=== PATIENT | female | born 1970 | race African-American/Black ===

== ENCOUNTER 2018-02-17 12:10 | Inpatient (IN) | payer MEDICAID, OTHER ==
[~2018-02-17] VITALS: Ht 154.9 cm; Wt 57.4 kg
[2018-02-17 13:47] LABS: Basophils # (auto) 0.1 uL; Basophils % (auto) 1.3 % (0.0-2.0); Eosinophils # (auto) 0 uL; Eosinophils % (auto) 0.5 % (0.0-7.0); Hematocrit 42.4 % (36.0-46.0); Hemoglobin 14.9 g/dL (12.2-16.2); Mean Corpuscular Hemoglobin 32.2 pg (28.0-32.0); Mean Corpuscular Volume 91.9 fL (80.0-100.0); Monocytes # (auto) 0.3 uL; Monocytes % (auto) 4.6 % (0.0-12.0); Neutrophils # (auto) 3.1 uL; Neutrophils % (auto) 56.6 % (37.0-80.0); Nucleated Red Blood Cells % 0.2 %; Platelet Count (auto) 429 10^3/uL (140-450); Red Blood Cells 4.61 10^6/uL (4.0-5.20); Red Cell Distribution Width 15.2 % (11.8-14.3); White Blood Cell 5.4 10^3/uL (4.4-10.8)
[2018-02-17 14:14] LABS: Alanine Aminotransferase 346 U/L (13-56); Albumin 3.2 g/dL (3.4-5.0); Alkaline Phosphatase 1451 U/L (45-117); Anion Gap 9 (5-15); Aspartate Aminotransferase 240 U/L (15-37); Bilirubin, Total 11.1 mg/dL (0.2-1.0); Blood Urea Nitrogen 12 mg/dL (7-18); Calcium 9.3 mg/dL (8.5-10.1); Carbon Dioxide 27 mmol/L (21-32); Chloride 102 mmol/L (98-107); GFR African American 76 mL/min; GFR Non-African American 63 mL/min; Glucose 95 mg/dL (74-106); Potassium 3.8 mmol/L (3.5-5.1); Sodium 138 mmol/L (136-145); Total Protein 8.5 g/dL (6.4-8.2)
[2018-02-17 16:56] LABS: Magnesium 2.4 mg/dL (1.6-2.6)
[2018-02-17 17:02] LABS: Partial Thromboplastin Time 28.6 sec (23.78-33.04); Prothrombin Time 10.7 sec (9.27-12.13)
[2018-02-17 17:40] LABS: Urine Bacteria NONE SEEN /hpf (None Seen); Urine Blood Negative /uL (Negative); Urine Mucus FEW (None Seen); Urine Specific Gravity 1.034 (1.001-1.035); Urine WBC 77 /hpf (0 - 5)
[2018-02-17 17:53] LABS: Amphetamine Screen, Urine NEGATIVE (NEGATIVE); Barbiturate Scree,Urine NEGATIVE (NEGATIVE); Benzodiazephine Screen, Urine NEGATIVE (NEGATIVE); Cannabinoid Screen, Urine POSITIVE (NEGATIVE); Cocaine Screen, Urine POSITIVE (NEGATIVE); Opiate Scree,Urine NEGATIVE (NEGATIVE); Phencyclidine Screen, Urine NEGATIVE (NEGATIVE)
[2018-02-17] MEDS ORDERED: cloNIDine HCL 0.1 MG TAB PO ONE (18:30)
[2018-02-17] MEDS ORDERED: cefTRIAXone 1GM/10ml IVPUSH 10 ML IV ONE (19:30)
[2018-02-17] MEDS: SODIUM CHLORIDE 0.9% 1,000 ML IV SCH (23:00)
[2018-02-17] MEDS: cloNIDine HCL 0.1 MG TAB PO PRN (23:35)
[2018-02-18] VITALS (8 sets, daily range): BP systolic 134–188; BP diastolic 77–105
[2018-02-18 05:51] LABS: Basophils # (auto) 0.1 uL; Basophils % (auto) 1.6 % (0.0-2.0); Eosinophils # (auto) 0.1 uL; Eosinophils % (auto) 1.7 % (0.0-7.0); Hematocrit 38.3 % (36.0-46.0); Hemoglobin 13.5 g/dL (12.2-16.2); Lymphocytes % (auto) 41.1 % (10.0-50.0); Mean Corpuscular Hemoglobin 32.7 pg (28.0-32.0); Mean Corpuscular Hgb Conc. 35.3 g/dL (32.0-36.0); Mean Corpuscular Volume 92.5 fL (80.0-100.0); Monocytes # (auto) 0.2 uL; Monocytes % (auto) 3.3 % (0.0-12.0); Neutrophils # (auto) 2.6 uL; Neutrophils % (auto) 52.3 % (37.0-80.0); Nucleated Red Blood Cells % 0.1 %; Platelet Count (auto) 379 10^3/uL (140-450); Red Blood Cells 4.14 10^6/uL (4.0-5.20); Red Cell Distribution Width 15.4 % (11.8-14.3)
[2018-02-18 06:13] LABS: Albumin 2.6 g/dL (3.4-5.0); Potassium 3.3 mmol/L (3.5-5.1)
[2018-02-18 06:15] LABS: BUN/Creatinine Ratio 13.6
[2018-02-18 06:27] LABS: Bilirubin, Total 9.1 mg/dL (0.2-1.0); Total Protein 6.9 g/dL (6.4-8.2)
[2018-02-18] MEDS: cefTRIAXone 1GM/10ml IVPUSH 10 ML IV SCH (10:17)
[2018-02-18] MEDS: PANTOPRAZOLE 40 MG/10 ML VIAL IV SCH (10:17)
[2018-02-18] MEDS: SODIUM CHLORIDE 0.9% 1,000 ML IV SCH ×2 (10:18→14:52)
[2018-02-18 11:31] LABS: Hepatitis A Ab IgM Negative; Hepatitis B Core IgM Negative; Hepatitis B Surface Antigen Negative (Negative)
[2018-02-18 11:32] LABS: Hepatitis C Antibody Negative (Negative)
[2018-02-18] MEDS ORDERED: LORazepam 2MG/ML-1ML VIAL IV ONE (13:00)
[2018-02-18] MEDS ORDERED: POTASSIUM CHL 20 Meq TABLET PO ONE (14:30)
[2018-02-18] MEDS ORDERED: amLODIPine BESYLATE 5 MG TAB PO ONE (14:45)
[2018-02-18] MEDS: TEMAZEPAM 15 MG CAP PO PRN (21:23)
[2018-02-18] MEDS: HYDROcodone-ACET 5/325MG TAB PO PRN (21:23)
[2018-02-19 04:42] VITALS: BP 185/94
[2018-02-19 06:36] LABS: Potassium 3.8 mmol/L (3.5-5.1)
[2018-02-19 06:41] LABS: Albumin 2.6 g/dL (3.4-5.0); BUN/Creatinine Ratio 10.8; Calcium 8.8 mg/dL (8.5-10.1)
[2018-02-19] MEDS: SODIUM CHLORIDE 0.9% 1,000 ML IV SCH ×2 (06:54→20:19)
[2018-02-19 06:57] LABS: Bilirubin, Total 10.2 mg/dL (0.2-1.0)
[2018-02-19] MEDS: cefTRIAXone 1GM/10ml IVPUSH 10 ML IV SCH (09:13)
[2018-02-19] MEDS: POTASSIUM CHL 20 Meq TABLET PO SCH (09:18)
[2018-02-19] MEDS: PANTOPRAZOLE 40 MG/10 ML VIAL IV SCH ×2 (09:18→22:13)
[2018-02-19] MEDS ORDERED: amLODIPine BESYLATE 5 MG TAB PO SCH (10:00)
[2018-02-19] MEDS ORDERED: amLODIPine BESYLATE 5 MG TAB PO ONE (10:45)
[2018-02-19 11:09] VITALS: BP 156/101
[2018-02-19 13:00] VITALS: BP 156/97
[2018-02-19] MEDS: ALUM & MAG HYDROX-SIMETH LIQ(MAALOX) 30 ML PO PRN (13:22)
[2018-02-19] MEDS: cloNIDine HCL 0.1 MG TAB PO PRN ×2 (14:02→22:15)
[2018-02-19] MEDS ORDERED: ACETAMINOPHEN 325 MG TAB PO ONE (14:15)
[2018-02-19] MEDS ORDERED: hydrALAZINE HCL 25 MG TAB PO ONE (14:30)
[2018-02-19] MEDS ORDERED: NICOTINE 21MG/24 HR TOPICAL PATCH TD ONE (14:30)
[2018-02-19 17:22] VITALS: BP 137/83
[2018-02-19] MEDS: hydrALAZINE HCL 25 MG TAB PO SCH (17:53)
[2018-02-19 22:00] VITALS: BP 166/93
[2018-02-19] MEDS: TEMAZEPAM 15 MG CAP PO PRN (22:15)
[2018-02-19] MEDS: HYDROcodone-ACET 5/325MG TAB PO PRN (22:15)
[2018-02-20] MEDS: hydrALAZINE HCL 25 MG TAB PO SCH ×5 (00:11→23:45)
[2018-02-20 05:00] VITALS: BP 131/91
[2018-02-20 07:03] LABS: Albumin 2.7 g/dL (3.4-5.0); BUN/Creatinine Ratio 5.4; Bilirubin, Total 8.3 mg/dL (0.2-1.0); Calcium 8.7 mg/dL (8.5-10.1); Potassium 3.5 mmol/L (3.5-5.1); Total Protein 7.1 g/dL (6.4-8.2)
[2018-02-20] MEDS: HYDROcodone-ACET 5/325MG TAB PO PRN ×2 (08:19→17:19)
[2018-02-20 09:12] VITALS: BP 110/62
[2018-02-20] MEDS: NICOTINE 21MG/24 HR TOPICAL PATCH TD SCH (10:10)
[2018-02-20] MEDS: cefTRIAXone 1GM/10ml IVPUSH 10 ML IV SCH (10:11)
[2018-02-20] MEDS: PANTOPRAZOLE 40 MG/10 ML VIAL IV SCH ×2 (10:11→21:50)
[2018-02-20] MEDS: amLODIPine BESYLATE 5 MG TAB PO SCH (10:11)
[2018-02-20] MEDS: POTASSIUM CHL 20 Meq TABLET PO SCH (10:11)
[2018-02-20 12:41] VITALS: BP 141/91
[2018-02-20] MEDS: ALUM & MAG HYDROX-SIMETH LIQ(MAALOX) 30 ML PO PRN ×2 (12:50→23:52)
[2018-02-20] MEDS: SODIUM CHLORIDE 0.9% 1,000 ML IV SCH (12:52)
[2018-02-20 17:05] VITALS: BP 155/112
[2018-02-20] MEDS: TEMAZEPAM 15 MG CAP PO PRN (21:50)
[2018-02-20 22:00] VITALS: BP 155/92
[2018-02-20] MEDS ORDERED: ACETAMINOPHEN 325 MG TAB PO ONE (22:45)
[2018-02-20] MEDS: ONDANSETRON HCL 4 MG/2 ML VIAL IV PRN (23:52)
[2018-02-21 05:47] VITALS: BP 141/84
[2018-02-21] MEDS: hydrALAZINE HCL 25 MG TAB PO SCH ×3 (05:50→18:40)
[2018-02-21] MEDS: SODIUM CHLORIDE 0.9% 1,000 ML IV SCH ×4 (05:51→21:48)
[2018-02-21 06:48] LABS: Partial Thromboplastin Time 28.2 sec (23.78-33.04); Prothrombin Time 10.7 sec (9.27-12.13)
[2018-02-21 07:21] LABS: Albumin 2.8 g/dL (3.4-5.0); BUN/Creatinine Ratio 6.2; Bilirubin, Total 9.3 mg/dL (0.2-1.0); Calcium 8.9 mg/dL (8.5-10.1); Potassium 4.1 mmol/L (3.5-5.1); Total Protein 7.4 g/dL (6.4-8.2)
[2018-02-21 08:00] VITALS: BP 144/98
[2018-02-21 09:24] VITALS: BP 144/98
[2018-02-21] MEDS ORDERED: MIDAZOLAM HCL 1MG/1ML-2 ML VIAL ONE ×3 (09:32→10:16)
[2018-02-21] MEDS ORDERED: LIDOCAINE 1% (LOCAL ANESTH.) PF 5ml SDV ONE (09:32)
[2018-02-21] MEDS ORDERED: PROPOFOL 10 MG/ML 20 ML IV ONE ×2 (09:36→10:27)
[2018-02-21 09:37] LABS: Basophils # (auto) 0.1 uL; Eosinophils # (auto) 0.1 uL; Eosinophils % (auto) 1.6 % (0.0-7.0); Hematocrit 40.1 % (36.0-46.0); Hemoglobin 13.4 g/dL (12.2-16.2); Lymphocytes # (auto) 1.8 uL; Lymphocytes % (auto) 34.5 % (10.0-50.0); Mean Corpuscular Hgb Conc. 33.4 g/dL (32.0-36.0); Monocytes # (auto) 0.3 uL; Monocytes % (auto) 5.4 % (0.0-12.0); Neutrophils % (auto) 57.5 % (37.0-80.0); Nucleated Red Blood Cells % 0.2 %; Platelet Count (auto) 430 10^3/uL (140-450); Red Blood Cells 4.31 10^6/uL (4.0-5.20); Red Cell Distribution Width 15.8 % (11.8-14.3); White Blood Cell 5.2 10^3/uL (4.4-10.8)
[2018-02-21] MEDS ORDERED: IOHEXOL 300 MG/ML 100ML BOTTLE IJ ONE (09:38)
[2018-02-21] MEDS ORDERED: diphenhdrAMINE HCL 50 MG/1 ML VL ONE (09:40)
[2018-02-21] MEDS ORDERED: KETAMINE HCL 1 ML ONE (09:41)
[2018-02-21] MEDS ORDERED: GLYCOPYRROLATE 0.2 MG/ML 1ML VIAL ONE (09:42)
[2018-02-21] MEDS ORDERED: ESMOLOL HCL 10 ML IV ONE ×2 (09:46→10:10)
[2018-02-21] MEDS ORDERED: hydrALAZINE HCL 20 MG/ML VL ONE (09:52)
[2018-02-21] MEDS ORDERED: METHYLENE BLUE 0.5% 5MG/ML 10ml AMP IV ONE (09:56)
[2018-02-21] MEDS: PANTOPRAZOLE 40 MG/10 ML VIAL IV SCH ×2 (10:00→21:49)
[2018-02-21] MEDS: POTASSIUM CHL 20 Meq TABLET PO SCH (10:00)
[2018-02-21] MEDS: amLODIPine BESYLATE 5 MG TAB PO SCH (10:00)
[2018-02-21] MEDS ORDERED: fentaNYL CITRATE 100 MCG/2 ML VL ONE (10:01)
[2018-02-21] MEDS ORDERED: SIMETHICONE 40 MG/0.6 ML ORAL DROP ONE (10:27)
[2018-02-21] MEDS ORDERED: ONDANSETRON HCL 4 MG/2 ML VIAL IV PRN (10:30)
[2018-02-21] MEDS ORDERED: hydrALAZINE HCL 20 MG/ML VL IV PRN (10:30)
[2018-02-21] MEDS ORDERED: NALOXONE HCL 0.4 MG/ML VIAL IV PRN (10:30)
[2018-02-21] MEDS ORDERED: HYDROmorphone HCL 2 MG/ML VL IV PRN ×2 (10:30)
[2018-02-21] MEDS ORDERED: METOCLOPRAMIDE HCL 5MG/ml INJ 2ml VIAL IV PRN (10:30)
[2018-02-21] MEDS ORDERED: PIPERACILLIN-TAZOB 3.375GM 100 ML IV ONE (11:15)
[2018-02-21] MEDS ORDERED: PIPERACILLIN-TAZOB 3.375GM 100 ML IV SCH (11:20)
[2018-02-21] MEDS: PIPERACILLIN-TAZOB 3.375GM 100 ML IV SCH ×2 (11:25→18:40)
[2018-02-21] MEDS ORDERED: LABETALOL HCL 5 MG/ML ML 20ML VIAL IV PRN (12:30)
[2018-02-21] MEDS ORDERED: IBUPROFEN 400 MG TAB PO PRN (12:45)
[2018-02-21 13:00] VITALS: BP 144/94
[2018-02-21] MEDS: NICOTINE 21MG/24 HR TOPICAL PATCH TD SCH (13:34)
[2018-02-21] MEDS: MORPHINE SULF INJ 2 MG/ML SYRINGE 1ML IV PRN ×2 (15:28→21:54)
[2018-02-21 17:00] VITALS: BP 135/92
[2018-02-21] MEDS: ONDANSETRON HCL 4 MG/2 ML VIAL IV PRN (21:49)
[2018-02-21] MEDS: TEMAZEPAM 15 MG CAP PO PRN (21:49)
[2018-02-21 22:00] VITALS: BP 145/82
[2018-02-22] MEDS: PIPERACILLIN-TAZOB 3.375GM 100 ML IV SCH ×4 (00:07→17:32)
[2018-02-22] MEDS: hydrALAZINE HCL 25 MG TAB PO SCH ×5 (00:12→22:04)
[2018-02-22 05:00] VITALS: BP 148/92
[2018-02-22 06:20] LABS: Basophils # (auto) 0 uL; Basophils % (auto) 0.9 % (0.0-2.0); Eosinophils # (auto) 0 uL; Eosinophils % (auto) 0.7 % (0.0-7.0); Hematocrit 38.7 % (36.0-46.0); Hemoglobin 13.5 g/dL (12.2-16.2); Lymphocytes # (auto) 1.9 uL; Lymphocytes % (auto) 34.4 % (10.0-50.0); Mean Corpuscular Hemoglobin 32.4 pg (28.0-32.0); Mean Corpuscular Volume 92.6 fL (80.0-100.0); Monocytes # (auto) 0.2 uL; Monocytes % (auto) 4.6 % (0.0-12.0); Neutrophils # (auto) 3.2 uL; Neutrophils % (auto) 59.4 % (37.0-80.0); Nucleated Red Blood Cells % 0.1 %; Platelet Count (auto) 412 10^3/uL (140-450); Red Blood Cells 4.17 10^6/uL (4.0-5.20); Red Cell Distribution Width 15.5 % (11.8-14.3); White Blood Cell 5.4 10^3/uL (4.4-10.8)
[2018-02-22 06:59] LABS: Albumin 2.9 g/dL (3.4-5.0); BUN/Creatinine Ratio 7.7; Bilirubin, Total 8.5 mg/dL (0.2-1.0); Calcium 9.1 mg/dL (8.5-10.1); Potassium 3.7 mmol/L (3.5-5.1); Total Protein 7.4 g/dL (6.4-8.2)
[2018-02-22] MEDS: HYDROcodone-ACET 5/325MG TAB PO PRN (08:28)
[2018-02-22 08:51] VITALS: BP 149/94
[2018-02-22] MEDS: PANTOPRAZOLE 40 MG/10 ML VIAL IV SCH ×2 (09:23→22:04)
[2018-02-22] MEDS: POTASSIUM CHL 20 Meq TABLET PO SCH (09:24)
[2018-02-22] MEDS: NICOTINE 21MG/24 HR TOPICAL PATCH TD SCH (09:24)
[2018-02-22] MEDS: amLODIPine BESYLATE 5 MG TAB PO SCH (09:25)
[2018-02-22] MEDS: SODIUM CHLORIDE 0.9% 1,000 ML IV SCH ×3 (11:46→22:05)
[2018-02-22 13:55] VITALS: BP 121/78
[2018-02-22] MEDS: FLUCONAZOLE 100 MG TAB PO SCH (14:46)
[2018-02-22] MEDS: MORPHINE SULF INJ 2 MG/ML SYRINGE 1ML IV PRN (16:19)
[2018-02-22 17:27] VITALS: BP 154/96
[2018-02-22 22:00] VITALS: BP 155/90
[2018-02-22] MEDS: TEMAZEPAM 15 MG CAP PO PRN (22:05)
[2018-02-23 05:00] VITALS: BP 156/100
[2018-02-23] MEDS: PIPERACILLIN-TAZOB 3.375GM 100 ML IV SCH ×2 (05:52)
[2018-02-23] MEDS: hydrALAZINE HCL 25 MG TAB PO SCH ×2 (05:52→12:17)
[2018-02-23] MEDS: MORPHINE SULF INJ 2 MG/ML SYRINGE 1ML IV PRN (05:53)
[2018-02-23] MEDS: ONDANSETRON HCL 4 MG/2 ML VIAL IV PRN (05:53)
[2018-02-23 07:11] LABS: BUN/Creatinine Ratio 3.7; Calcium 9.4 mg/dL (8.5-10.1); Potassium 3.7 mmol/L (3.5-5.1)
[2018-02-23 07:27] LABS: Bilirubin, Total 9.7 mg/dL (0.2-1.0); Total Protein 8.1 g/dL (6.4-8.2)
[2018-02-23 08:31] VITALS: BP 150/87
[2018-02-23] MEDS: NICOTINE 21MG/24 HR TOPICAL PATCH TD SCH (09:30)
[2018-02-23] MEDS: PANTOPRAZOLE 40 MG/10 ML VIAL IV SCH (09:30)
[2018-02-23] MEDS: amLODIPine BESYLATE 5 MG TAB PO SCH (09:31)
[2018-02-23] MEDS: FLUCONAZOLE 100 MG TAB PO SCH (09:32)
[2018-02-23] MEDS: POTASSIUM CHL 20 Meq TABLET PO SCH (09:32)
[2018-02-23] MEDS ORDERED: HYDROcodone-ACET 5/325MG TAB PO PRN (10:30)
[2018-02-23] MEDS ORDERED: MORPHINE SULF INJ 2 MG/ML SYRINGE 1ML IV PRN (10:30)
[2018-02-23] MEDS ORDERED: NIC21P TD (11:49)
[2018-02-23] MEDS ORDERED: AML5T PO (11:49)
[2018-02-23] MEDS ORDERED: PANT40TA2 PO (11:49)
[2018-02-23] MEDS ORDERED: HYDR-4296 PO (11:49)
[2018-02-23 13:00] VITALS: BP 165/107
[2018-02-23 14:10] VITALS: BP 144/92
[2018-02-23] MEDS ORDERED: LABE200T18 PO (15:53)
== END 2018-02-23 15:05 | disposition home or self-care (01) | DRG 757 ==
LOC: EDBD 12:13 → ER 12:13 → OVERFLOW 12:14 → WEST WING 23:20
PROVIDERS: ADMIT Nurse Practitioner; ATTEND Internal Medicine
PROC: BF181ZZ Fluoroscopy of Pancreatic Ducts using Low Osmolar Contrast (ICD-10-PCS; 2018-02-21)
PROC: 0FJD8ZZ Inspection of Pancreatic Duct, Via Natural or Artificial Opening Endoscopic (ICD-10-PCS; principal; 2018-02-21 09:32)
DX: B37.49 Other urogenital candidiasis (principal); K83.1 Obstruction of bile duct; E87.6 Hypokalemia; F17.210 Nicotine dependence, cigarettes, uncomplicated; F12.10 Cannabis abuse, uncomplicated; F14.10 Cocaine abuse, uncomplicated; I10 Essential (primary) hypertension; K76.0 Fatty (change of) liver, not elsewhere classified; K86.89 Other specified diseases of pancreas; Z59.0 Homelessness; Z82.49 Family history of ischemic heart disease and other diseases of the circulatory system; Z91.19 Patient's noncompliance with other medical treatment and regimen; Z71.6 Tobacco abuse counseling
CPT/HCPCS: 36415; 43260; 70450; 74018; 74181; 74328; 76001; 76700; 80053; 80074; 80307; 81001; 81025; 82105; 82150; 82248; 83690; 83735; 84484; 84702; 85025; 85610; 85730; 86301; 86360; 86701; 86703; 86850; 86900; 86901; 87086; 93005; 96361; 96367; 96374; 96375; A6257; C9113; J0696; J2250; J2405; J2543; J2704

== ENCOUNTER 2018-03-24 11:09 | Observation (INO) | payer MEDICAID ==
[~2018-03-24] VITALS: Ht 154.9 cm; Wt 56.2 kg
[~2018-03-24 11:09] MED LIST: AML5T PO; LABE200T18 PO; PANT40TA2 PO
[2018-03-24 13:04] LABS: Basophils # (auto) 0 uL; Basophils % (auto) 0.9 % (0.0-2.0); Eosinophils # (auto) 0.1 uL; Eosinophils % (auto) 2.1 % (0.0-7.0); Hematocrit 34.9 % (36.0-46.0); Hemoglobin 11.8 g/dL (12.2-16.2); Lymphocytes # (auto) 0.8 uL; Lymphocytes % (auto) 20.3 % (10.0-50.0); Mean Corpuscular Hemoglobin 32.1 pg (28.0-32.0); Mean Corpuscular Hgb Conc. 33.9 g/dL (32.0-36.0); Mean Corpuscular Volume 94.8 fL (80.0-100.0); Monocytes # (auto) 0.2 uL; Monocytes % (auto) 5.1 % (0.0-12.0); Neutrophils % (auto) 71.6 % (37.0-80.0); Nucleated Red Blood Cells % 0.1 %; Platelet Count (auto) 354 10^3/uL (140-450); Red Blood Cells 3.69 10^6/uL (4.0-5.20); Red Cell Distribution Width 15.2 % (11.8-14.3); White Blood Cell 4.2 10^3/uL (4.4-10.8)
[2018-03-24] MEDS ORDERED: SODIUM CHLORIDE 0.9% 1,000 ML IVB ONE (13:05)
[2018-03-24] MEDS ORDERED: ONDANSETRON HCL 4 MG/2 ML VIAL IV ONE ×3 (13:15→20:00)
[2018-03-24] MEDS ORDERED: KETOROLAC TROMETH 30 MG/ML 1ML VIAL IV ONE (13:15)
[2018-03-24 13:23] LABS: Alanine Aminotransferase 157 U/L (13-56); Albumin 3.1 g/dL (3.4-5.0); Alkaline Phosphatase 578 U/L (45-117); Anion Gap 8 (5-15); Aspartate Aminotransferase 51 U/L (15-37); BUN/Creatinine Ratio 14.1; Bilirubin, Total 2.8 mg/dL (0.2-1.0); Blood Urea Nitrogen 11 mg/dL (7-18); Calcium 9.2 mg/dL (8.5-10.1); Carbon Dioxide 23 mmol/L (21-32); Chloride 102 mmol/L (98-107); GFR African American 101 mL/min; GFR Non-African American 83 mL/min; Glucose 81 mg/dL (74-106); Magnesium 2.3 mg/dL (1.6-2.6); Potassium 3.6 mmol/L (3.5-5.1); Sodium 133 mmol/L (136-145); Total Protein 7.9 g/dL (6.4-8.2)
[2018-03-24 13:36] LABS: Amylase 48 U/L (25-115); Lipase 147 U/L (73-393)
[2018-03-24 13:42] LABS: INR 0.91 (0.9-1.15); Partial Thromboplastin Time 26.5 sec (23.78-33.04); Prothrombin Time 9.8 sec (9.27-12.13)
[2018-03-24 13:53] LABS: Urine Bacteria MOD /hpf (None Seen); Urine Blood Negative /uL (Negative); Urine Mucus FEW (None Seen); Urine Specific Gravity 1.015 (1.001-1.035); Urine WBC 13 /hpf (0 - 5)
[2018-03-24] MEDS ORDERED: PROMETHAZINE HCL 25 MG/ML 1ML IV ONE (16:00)
[2018-03-24] MEDS ORDERED: cefTRIAXone 1GM/10ml IVPUSH 10 ML IV ONE (16:00)
[2018-03-24] MEDS ORDERED: MORPHINE SULFATE 4 MG/ML SYR/VIAL IV ONE ×2 (16:00→20:00)
[2018-03-24] MEDS ORDERED: ONDANSETRON HCL 4 MG/2 ML VIAL ONE (16:20)
[2018-03-24] MEDS ORDERED: metroNIDAZOLE 500MG/100ML 100 ML IV ONE (17:15)
[2018-03-24] MEDS ORDERED: PIPERACILLIN-TAZOB 3.375GM 100 ML IV ONE (17:15)
[2018-03-24] MEDS ORDERED: FLUCONAZOLE 200MG/100ML 100 ML IV ONE (20:00)
[2018-03-24 22:35] VITALS: BP 124/46
== END 2018-03-24 22:46 | disposition short-term general hospital (02) | DRG 251 ==
LOC: ER 11:13 → OVERFLOW 11:14 → ER 22:46
PROVIDERS: ADMIT Family Medicine; ATTEND Family Medicine
DX: R10.13 Epigastric pain (principal); C22.1 Intrahepatic bile duct carcinoma; K83.8 Other specified diseases of biliary tract; D64.9 Anemia, unspecified; F14.90 Cocaine use, unspecified, uncomplicated; F15.90 Other stimulant use, unspecified, uncomplicated; F17.210 Nicotine dependence, cigarettes, uncomplicated; I10 Essential (primary) hypertension; N39.0 Urinary tract infection, site not specified; R79.89 Other specified abnormal findings of blood chemistry; Z21 Asymptomatic human immunodeficiency virus [HIV] infection status; Z59.0 Homelessness; Z83.3 Family history of diabetes mellitus
CPT/HCPCS: 36415; 71045; 74176; 80053; 81001; 82150; 83690; 83735; 84484; 85025; 85610; 85730; 93005; 96361; 96365; 96366; 96368; 96375; 96376; 99291; G0378; J0696; J1450; J1885; J2270; J2405; J2543; J3490; J7030

== ENCOUNTER 2018-07-15 13:56 | Emergency (ER) | payer MEDICAID ==
[~2018-07-15] VITALS: Ht 154.9 cm; Wt 51.7 kg
[2018-07-15] MEDS ORDERED: DOCUSATE SOD 100 MG CAP PO ONE (15:15)
[2018-07-15 15:18] VITALS: BP 189/122
[2018-07-15] MEDS ORDERED: KETOROLAC TROMETH 60MG/2ML VIAL IM ONE (17:00)
[2018-07-15] MEDS ORDERED: KETOROLAC TROMETH 30 MG/ML 1ML VIAL IV ONE (17:00)
[2018-07-15] MEDS ORDERED: KETOROLAC TROMETH 30 MG/ML 1ML VIAL IM ONE (17:15)
== END 2018-07-15 17:29 | disposition home or self-care (01) ==
LOC: ER 14:05
DX: K59.00 Constipation, unspecified (principal); I10 Essential (primary) hypertension; F17.210 Nicotine dependence, cigarettes, uncomplicated; F12.10 Cannabis abuse, uncomplicated; F15.10 Other stimulant abuse, uncomplicated; F14.10 Cocaine abuse, uncomplicated
CPT/HCPCS: 74018; 93005; 96372; 99283; J1885